=== PATIENT | male | born 2000 | race Caucasian/White ===

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

== ENCOUNTER 2022-02-07 00:34 | Emergency (ER) | payer BC ==
[2022-02-07] MEDS ORDERED: Sodium Chloride 0.9% 10 ML Syringe FLUSH PRN (00:47)
[2022-02-07] MEDS ORDERED: Metoclopramide 10 MG/2 ML SDV IVPUSH PRN (00:47)
[2022-02-07] MEDS ORDERED: Sodium Chloride 0.9% 1,000 ML IV ONE (00:47)
[2022-02-07] MEDS ORDERED: LORazepam 2 MG/ML SDV IVPUSH ONE (00:47)
== END 2022-02-07 02:10 | disposition home or self-care (01) ==
LOC: FB.ED 00:34
DX: U07.1 COVID-19 (principal); E86.0 Dehydration; R11.10 Vomiting, unspecified
CPT/HCPCS: 96361; 96374; 96375; 99283-25; J2060; J2765; J3490; J7030